=== PATIENT | male | born 1955 | race Caucasian/White ===

== ENCOUNTER 2021-01-06 11:00 | Outpatient (RCR) | payer MEDICARE, MEDICAID, SELFPAY | END 2021-01-16 18:17 | disposition home or self-care (01) | LOC: HO.PT 11:00 | PROVIDERS: PCP Family Medicine; Visit Provider Family Medicine | DX: M25.562 Pain in left knee (principal) | CPT/HCPCS: 97035; 97110; 97161 ==

== ENCOUNTER 2022-04-30 06:58 | Day surgery (SDC) | payer MEDICARE, MEDICAID, SELFPAY ==
[2022-04-25 11:51] VITALS: BMI 28.3
--- NOTE | 2022-04-27 09:15 | MHC.SHP ---
Pre-Procedural Eval Section A Date of Service: 04/27/22 The patient is an INPATIENT: No Changes since office visit: No Cold of Flu in the past 2 weeks, No New Medical Problems, No Changes in Medication and No Patient answered all questions The History & Physical has been completed within 30 days and I have reviewed it.: Yes Section B Chief Complaint: Age-related nuclear cataract, right eye Plan Diagnosis/Plan: Unchanged I have reviewed the history and physical and performed a pertinent physical examination on my patient. No changes have occurred unless specified. Time Spent With Patient Time: Total time managing care of this patient today ____ minutes.
--- NOTE | 2022-04-27 10:20 | HO.ANESPROP2 ---
Documented by User: Yun Tucker NP 04/27/22 10:21 HPI - Anesthesia Eval Consult details Narrative: 66yo M for Right Cataract Extraction IOL Insertion PCP cleared No previous cataract on record PMFSH Past Medical History Medical History (Updated 04/30/22 @ 07:54 by Angelina Patel, RN) Anxiety Depression Hypercholesteremia Insomnia Surgical History Surgical History (Updated 04/30/22 @ 07:54 by Angelina Patel RN) Hx of arthroscopic knee surgery Social History Social History Patient Tobacco Use Status: Never used Tobacco Are you DNR?: No Advance Directives: No Advance Directives Information Provided: Yes Nutrition Risks: No Nutritional Risk Meds Allergies Allergy/AdvReac Type Severity Reaction Status Date / Time No Known Allergies Allergy Verified 04/30/22 07:53 Home Medications Medication Instructions Recorded Confirmed Last Taken Type atorvastatin 20 mg tablet 1 tab DAILY 04/25/22 04/25/22 Unknown History cholecalciferol (vitamin D3) 25 1 tab PO QAM 04/25/22 04/25/22 Unknown History mcg (1,000 unit) tablet citalopram 40 mg tablet 1 tab BEDTIME 04/25/22 04/25/22 Unknown History clonazepam 0.5 mg tablet 1 tab PO DAILY PRN Anxiety 04/25/22 04/25/22 Unknown History cyanocobalamin (vitamin B-12) 1 tab DAILY 04/25/22 04/25/22 Unknown History 1,000 mcg tablet lorazepam 0.5 mg tablet 1 tab DAILY 04/25/22 04/25/22 Unknown History multivitamin with folic acid 400 1 tab PO DAILY 04/25/22 04/25/22 Unknown History mcg tablet (Daily-Adri (with folic acid)) risperidone 0.25 mg tablet 3 tab PO BEDTIME 04/25/22 04/25/22 Unknown History zolpidem 10 mg tablet 1 tab BEDTIME 04/25/22 04/25/22 Unknown History Exam Exam Date and Time: April 27, 2022 1020 Height,Weight and Vital Signs: Height 5 ft 3 in Weight 72.575 kg Assessment and Plan Assessment Anesthesia Assessment: Chart Reviewed Documented by User: Raymundo Campbell MD 04/30/22 10:51 HPI - Anesthesia Eval Consult details Narrative: 66yo M for Right Cataract Extraction IOL Insertion optimized as per PCP PCP cleared No previous cataract on record PMFSH Past Medical History Medical History (Updated 04/30/22 @ 07:54 by Angelina Patel, RN) Anxiety Depression Hypercholesteremia Insomnia Functional capacity: independent ambulation Family History Family history of problems with anesthesia: No Surgical History Surgical History (Updated 04/30/22 @ 07:54 by Angelina Patel RN) Hx of arthroscopic knee surgery History of Problems with Anesthesia: No Social History Social History Patient Tobacco Use Status: Never used Tobacco Are you DNR?: No Advance Directives: No Advance Directives Information Provided: Yes Nutrition Risks: No Nutritional Risk Meds Allergies Allergy/AdvReac Type Severity Reaction Status Date / Time No Known Allergies Allergy Verified 04/30/22 07:53 Home Medications Medication Instructions Recorded Confirmed Last Taken Type atorvastatin 20 mg tablet 1 tab DAILY 04/25/22 04/25/22 Unknown History cholecalciferol (vitamin D3) 25 1 tab PO QAM 04/25/22 04/25/22 Unknown History mcg (1,000 unit) tablet citalopram 40 mg tablet 1 tab BEDTIME 04/25/22 04/25/22 Unknown History clonazepam 0.5 mg tablet 1 tab PO DAILY PRN Anxiety 04/25/22 04/25/22 Unknown History cyanocobalamin (vitamin B-12) 1 tab DAILY 04/25/22 04/25/22 Unknown History 1,000 mcg tablet lorazepam 0.5 mg tablet 1 tab DAILY 04/25/22 04/25/22 Unknown History multivitamin with folic acid 400 1 tab PO DAILY 04/25/22 04/25/22 Unknown History mcg tablet (Daily-Adri (with folic acid)) risperidone 0.25 mg tablet 3 tab PO BEDTIME 04/25/22 04/25/22 Unknown History zolpidem 10 mg tablet 1 tab BEDTIME 04/25/22 04/25/22 Unknown History Exam Airway Mallampati Class: IV TM Dist: >3cm Denture: Upper and Lower Loose/Missing/Broken Teeth: Yes Heart: S1,S2 Lungs: b/l breath sounds Assessment and Plan Assessment Anesthesia Assessment: Anesthesia Plan Discussed Final Anesthetic Review Family History of Problems with Anesthesia: No History of Problems with Anesthesia: No NPO: Yes ASA Class: III Final Preanesthetic Review: Meds/Allgs Chart Reviewed, Consent Obtained/Reviewed and Anes Risks/Benef Reviewed Patient Risk: Intermediate Procedure Risk: Intermediate Anesthetic Plan Anesthetic Plan: MAC: Disposition: Standard PACU
[2022-04-30] MEDS: Tropicamide 1 % Ophth Sol 3 ML BTL 1 DROP EYE-RIGHT ×3 (08:04→08:23)
[2022-04-30] MEDS: Tetracaine HCl/PF 0.5% Oph Sol 4 ML DROPS 1 DROP EYE-RIGHT (08:04)
[2022-04-30] MEDS: Phenylephrine HCL 2.5% Oph SoL 2 ML BOTTLE 1 DROP EYE-RIGHT ×3 (08:04→08:21)
[2022-04-30] MEDS: Ketorolac Tromethamine 0.5% Op 5 ML DROPS 1 DROP EYE-RIGHT ×3 (08:05→08:21)
[2022-04-30] MEDS: Cyclopentolate 1 % Ophth Sol 2 ML DRPBTL 1 DROP EYE-RIGHT ×3 (08:05→08:22)
[2022-04-30] MEDS: Lactated Ringers 500 ML 50 ML IV (08:12)
[2022-04-30 08:24] VITALS: BP 128/97; PULSE 80; RESP 18; TEMP 36.6; O2SAT 97
--- NOTE | 2022-04-30 09:39 | HO.PNOPHT ---
Ophthalmology Procedure Procedure Date of Service: 04/30/22 Ophthalmology Viscoelastic: Healon Duet Dual Pack Pro Ophthalmology Lenses: SENSAR AR40 (8) Procedure Notes: PREOPERATIVE DIAGNOSIS: Decreased visual acuity right eye secondary to cataract POSTOPERATIVE DIAGNOSIS: Same PROCEDURE: Right cataract extraction with intraocular lens insertion SURGEON: Colt Reardon M.D. ANESTHESIA: Topical/MAC ESTIMATED BLOOD LOSS: None COMPLICATIONS: None After obtaining informed consent, the patient was brought to the operating room suite and placed in the supine position. After adequate sedation per anesthesia, topical drops of Tetracaine were given to the right eye. The eye was then prepped and draped in the usual sterile fashion. The operating room microscope was then positioned over the operative eye and a lid speculum placed. A paracentesis was created. Viscoelastic was then instilled into the anterior chamber. A three plane incision was then created temporally, utilizing a 2.85 mm keratome. Capsulotomy forceps were then utilized to create a circular tear capsulotomy. Hydrodissection and hydrodelineation were carried out until adequate mobilization of the nucleus occurred. Phacoemulsification was then utilized to remove the dense central nucleus followed by removal of the cortical material utilizing the automated aspiration irrigation unit. Viscoelastic was instilled into the posterior capsular bag followed by placement of a posterior chamber intraocular lens without difficulty. The residual Viscoelastic was then removed utilizing the automated IA machine. The wound was checked and found to be watertight. The patient tolerated the procedure well and the lid speculum was removed. Intracameral injection of Vigamox 0.1 mL followed by a subtenon injection of Kenalog-40 0.2 mL were administered. The patient will be seen in the a.m.
[2022-04-30 10:16] VITALS: BP 116/77; PULSE 65; RESP 17; TEMP 36.4; O2SAT 96
== END 2022-04-30 10:19 | disposition home or self-care (01) ==
PROVIDERS: PCP Internal Medicine; Visit Provider Ophthalmology
PROC: (CPT 66985; principal; 2022-04-30 09:50)
DX: H25.11 Age-related nuclear cataract, right eye (principal); H52.4 Presbyopia; H52.13 Myopia, bilateral; H35.09 Other intraretinal microvascular abnormalities; H18.413 Arcus senilis, bilateral; E78.00 Pure hypercholesterolemia, unspecified; F41.1 Generalized anxiety disorder; F32.A Depression, unspecified; Z79.899 Other long term (current) drug therapy
CPT/HCPCS: 66984; J2250; J3010; J3301; V2632

== ENCOUNTER 2022-05-14 06:58 | Day surgery (SDC) | payer MEDICARE, MEDICAID, SELFPAY ==
[2022-05-08 15:42] VITALS: BMI 28.3
--- NOTE | 2022-05-10 14:47 | MHC.SHP ---
Pre-Procedural Eval Section A Date of Service: 05/10/22 The patient is an INPATIENT: No Changes since office visit: No Cold of Flu in the past 2 weeks, No New Medical Problems, No Changes in Medication and No Patient answered all questions The History & Physical has been completed within 30 days and I have reviewed it.: Yes Section B Chief Complaint: Age-related nuclear cataract, left eye Allergies: Allergies Allergy/AdvReac Type Severity Reaction Status Date / Time No Known Allergies Allergy Verified 04/30/22 07:53 Plan Diagnosis/Plan: Unchanged I have reviewed the history and physical and performed a pertinent physical examination on my patient. No changes have occurred unless specified. Time Spent With Patient Time: Total time managing care of this patient today ____ minutes.
[2022-05-14 08:30] VITALS: BMI 29.2
--- NOTE | 2022-05-14 08:34 | HO.ANESPROP2 ---
[facility] [place] Past Medical History Medical History (Updated 05/08/22 @ 15:35 by Afsaneh Gomez RN) Anxiety Cataract Depression Hypercholesteremia Insomnia Family History Family history of problems with anesthesia: No Surgical History Surgical History (Updated 05/08/22 @ 15:37 by Afsaneh Gomez RN) H/O right cataract extraction Hx of arthroscopic knee surgery History of Problems with Anesthesia: No Social History Social History Patient Tobacco Use Status: Never used Tobacco Use of substances other than those prescribed or required for medical reasons: No Are you DNR?: No Advance Directives: No Advance Directives Information Provided: Yes Recently lost weight without trying: No Nutrition Risks: No Nutritional Risk Meds Allergies Allergy/AdvReac Type Severity Reaction Status Date / Time No Known Allergies Allergy Verified 04/30/22 07:53 Active Medications: Current Medications Povidone Iodine (Povidone Iodine 5 % Ophth Soln 30 Ml Bottle) 1 appl EYE-LEFT PREOP PRN PRN Reason: Pre-Op Surgical Implant Prophy Home Medications Medication Instructions Recorded Confirmed Last Taken Type atorvastatin 20 mg tablet 1 tab DAILY 04/25/22 04/25/22 Unknown History cholecalciferol (vitamin D3) 25 1 tab PO QAM 04/25/22 04/25/22 Unknown History mcg (1,000 unit) tablet citalopram 40 mg tablet 1 tab BEDTIME 04/25/22 04/25/22 Unknown History clonazepam 0.5 mg tablet 1 tab PO DAILY PRN Anxiety 04/25/22 05/14/22 05/14/22 05:00 History cyanocobalamin (vitamin B-12) 1 tab DAILY 04/25/22 04/25/22 Unknown History 1,000 mcg tablet lorazepam 0.5 mg tablet 1 tab DAILY 04/25/22 04/25/22 Unknown History multivitamin with folic acid 400 1 tab PO DAILY 04/25/22 04/25/22 Unknown History mcg tablet (Daily-Adri (with folic acid)) risperidone 0.25 mg tablet 3 tab PO BEDTIME 04/25/22 04/25/22 Unknown History zolpidem 10 mg tablet 1 tab BEDTIME 04/25/22 04/25/22 Unknown History Exam Exam Date and Time: May 14, 2022 0834 Height,Weight and Vital Signs: Height 5 ft 2 in Weight 72.575 kg Airway Mallampati Class: II TM Dist: >3cm Neck ROM: Full Heart: rrr Lungs: cta Assessment and Plan Assessment Anesthesia Assessment: Anesthesia Plan Discussed and Chart Reviewed Final Anesthetic Review Family History of Problems with Anesthesia: No History of Problems with Anesthesia: No NPO: Yes ASA Class: II Final Preanesthetic Review: No Changes in Pt Med Stat, Meds/Allgs Chart Reviewed and Consent Obtained/Reviewed Patient Risk: Intermediate Procedure Risk: Intermediate Anesthetic Plan Anesthetic Plan: MAC: Disposition: Standard PACU
[2022-05-14 08:38] VITALS: BP 134/78; PULSE 82; RESP 16; TEMP 36.7; O2SAT 93
[2022-05-14] MEDS: Tetracaine HCl/PF 0.5% Oph Sol 4 ML DROPS 1 DROP EYE-LEFT (08:39)
[2022-05-14] MEDS: Cyclopentolate 1 % Ophth Sol 2 ML DRPBTL 1 DROP EYE-LEFT ×3 (08:39→08:49)
[2022-05-14] MEDS: Lactated Ringers 500 ML 50 ML IV (08:40)
[2022-05-14] MEDS: Tropicamide 1 % Ophth Sol 3 ML BTL 1 DROP EYE-LEFT ×3 (08:41→08:51)
[2022-05-14] MEDS: Ketorolac Tromethamine 0.5% Op 5 ML DROPS 1 DROP EYE-LEFT ×3 (08:43→08:52)
[2022-05-14] MEDS: Phenylephrine HCL 2.5% Oph SoL 2 ML BOTTLE 1 DROP EYE-LEFT ×3 (08:46→08:53)
--- NOTE | 2022-05-14 09:27 | HO.PNOPHT ---
Ophthalmology Procedure Procedure Date of Service: 05/14/22 Ophthalmology Viscoelastic: Healon Duet Dual Pack Pro Ophthalmology Lenses: SENSAR AR40 (7) Procedure Notes: PREOPERATIVE DIAGNOSIS: Decreased visual acuity left eye secondary to cataract POSTOPERATIVE DIAGNOSIS: Same PROCEDURE: Left cataract extraction with intraocular lens insertion SURGEON: Colt Reardon M.D. ANESTHESIA: Topical/MAC ESTIMATED BLOOD LOSS: None COMPLICATIONS: None After obtaining informed consent, the patient was brought to the operation room suite and placed in the supine position. After adequate sedation per anesthesia, topical drops of Tetracaine were given to the left eye. The eye was then prepped and draped in the usual sterile fashion. The operating room microscope was then positioned over the operative eye and a lid speculum placed. A paracentesis was created. Viscoelastic was then instilled into the anterior chamber. A three plane incision was then created temporally, utilizing a 2.85 mm keratome. Capsulotomy forceps were then utilized to create a circular tear capsulotomy. Hydrodissection and hydrodelineation were carried out until adequate mobilization of the nucleus occurred. Phacoemulsification was then utilized to remove the dense central nucleus followed by removal of the cortical material utilizing the automated aspiration irrigation unit. Viscoat elastic was instilled into the posterior capsular bag followed by placement of a posterior chamber intraocular lens without difficulty. The residual Viscoat elastic was then removed utilizing the automated IA machine. The wound was check and found to be watertight. The patient tolerated the procedure well and the lid speculum was removed. Intracameral injection of Vigamox 0.1 mL followed by a subtenon injection of Kenalog-40 0.2 mL were administered. The patient will be seen in the a.m.
[2022-05-14 09:49] VITALS: BP 104/66; PULSE 69; RESP 12; TEMP 36.5; O2SAT 98
== END 2022-05-14 10:09 | disposition home or self-care (01) ==
PROVIDERS: PCP Internal Medicine; Visit Provider Ophthalmology
PROC: (CPT 66985; principal; 2022-05-14 09:40)
DX: H25.12 Age-related nuclear cataract, left eye (principal); H52.4 Presbyopia; H18.413 Arcus senilis, bilateral; H11.153 Pinguecula, bilateral; H52.13 Myopia, bilateral; H35.09 Other intraretinal microvascular abnormalities; E78.00 Pure hypercholesterolemia, unspecified; F41.1 Generalized anxiety disorder; F32.A Depression, unspecified; Z79.899 Other long term (current) drug therapy
CPT/HCPCS: 66984; J2250; J3010; J3301; V2632

== ENCOUNTER 2023-01-21 08:36 | Outpatient (REF) | payer MEDICARE, MEDICAID, SELFPAY ==
[2023-01-21 15:09] LABS: Alanine Aminotransferase 29 U/L (0-40); Albumin Level 4.4 g/dL (3.5-5.0); Alkaline Phosphatase 89 U/L (39-117); Anion Gap 13 (12-20); Aspartate Amino Transferase 29 U/L (5-37); Bilirubin Total 0.6 mg/dL (0.0-1.0); Blood Urea Nitrogen 15 mg/dL (9-16); Calcium 9.6 mg/dL (8.4-10.2); Carbon Dioxide 27 mmol/L (22-29); Chloride 106 mmol/L (96-108); Cholesterol 135 mg/dL (<200); Estimated Glomerular Filt Rate > 60; Glucose Random 91 mg/dL (60-115); HDL Cholesterol 58 mg/dL (>40); LDL Cholesterol Calculated 68 mg/dL (<100); Potassium 4.3 mmol/L (3.3-5.1); Sodium 142 mmol/L (135-145); Total Protein 7.3 g/dL (6.5-8.0); Triglycerides 49 mg/dL (<150)
== END 2023-01-21 08:37 | disposition home or self-care (01) ==
LOC: HO.CHCLDS 08:36
PROVIDERS: Visit Provider Internal Medicine
DX: E78.2 Mixed hyperlipidemia (principal)
CPT/HCPCS: 36415; 80053; 80061

== ENCOUNTER → 2023-05-02 09:24 | Outpatient (BNVA) | payer MEDICARE, MEDICAID, SELFPAY | PROVIDERS: PCP Internal Medicine; Visit Provider Physician Assistant ==

== ENCOUNTER 2023-08-20 06:10 | Day surgery (SDC) | payer MEDICARE, MEDICAID, SELFPAY ==
[2023-08-20 08:28] VITALS: BP 135/67; PULSE 67; RESP 19; TEMP 36.4; O2SAT 97; BMI 25.8
--- NOTE | 2023-08-20 08:54 | P.HPSUR_ITS ---
Pre-Procedural Eval Section A - 24 Hr Update-Section A only Date of Service: 08/20/23 Section B - Complete if H&P > 30 days Chief Complaint: Encounter for screening for malignant neoplasm of Relevant Family History (Specify if Yes): No Relevant Social History: None Present Medications: see Short Stay Collaborative assessment Medical History: Significant History (Anxiety Cataract Depression Hypercholest eremia Insomnia) History of Previous Operations: Relevant previous surgery/procedure and date(s) (H/O right cataract extraction Hx of arthroscopic knee surgery) Allergies: Allergies Allergy/AdvReac Type Severity Reaction Status Date / Time No Known Allergies Allergy Verified 05/02/23 09:42 Review of Systems Sugical H&P ROS: Negative: Constitution, Cardiovascular, Respiratory, Neurological, Psychiatric, Hem-Onc, Allergic/Immunologic, Gastrointestinal, Genitourinary, Musculoskeletal, Integumentary, Endocrine and Eyes/Ears/Nose/Throat Exam Surgical H&P Exam: Normal: HEENT, Normal: Heart, Normal: Lungs, Normal: Extremities, Normal: Abdomen, Normal: Skin and Normal: Neurological Plan Diagnosis/Plan: Unchanged I have reviewed the history and physical and performed a pertinent physical examination on my patient. No changes have occurred unless specified. Time Spent With Patient Time: Total time managing care of this patient today ____ minutes.
--- NOTE | 2023-08-20 09:15 | HO.ANESPROP2 ---
HPI - Anesthesia Eval Consult details Narrative: 67 yo male patient for Colonoscopy PMFSH Active Problems Active Problems: All Active Problems Encounter for screening colonoscopy (Acute) Past Medical History Medical History Cataract Hypercholesteremia Depression Anxiety Insomnia Family History Family History Family/Other No family history of colorectal cancer Family history of problems with anesthesia: No Surgical History Surgical History H/O right cataract extraction Hx of arthroscopic knee surgery History of Problems with Anesthesia: No Social History Social History Household Members Other:: Alcohol intake: never Patient Tobacco Use Status: Never used Tobacco Are you DNR?: No Advance Directives: No Advance Directives Information Provided: Yes Nutrition Risks: No Nutritional Risk Current occupational status: unemployed Meds Allergies Allergy/AdvReac Type Severity Reaction Status Date / Time No Known Allergies Allergy Verified 05/02/23 09:42 Active Medications: Current Medications Lactated Ringer's (Lr) 1,000 mls @ 50 mls/hr IVCONT .Q20H YISSEL Home Medications ?Medication ?Instructions ?Recorded ?Confirmed ?Last Taken ?Type atorvastatin 20 mg tablet 1 tab DAILY 04/25/22 04/25/22 Unknown History cholecalciferol (vitamin D3) 25 1 tab PO QAM 04/25/22 04/25/22 Unknown History mcg (1,000 unit) tablet citalopram 40 mg tablet 1 tab BEDTIME 04/25/22 04/25/22 Unknown History multivitamin with folic acid 400 1 tab PO DAILY 04/25/22 04/25/22 Unknown History mcg tablet (Daily-Adri (with folic acid)) risperidone 0.25 mg tablet 3 tab PO BEDTIME 04/25/22 04/25/22 Unknown History zolpidem 10 mg tablet 1 tab BEDTIME 04/25/22 04/25/22 Unknown History Exam Height,Weight and Vital Signs: Height 5 ft 2 in Weight 64.047 kg Last Vital Signs Temp 97.5 F 08/20/23 08:28 Pulse 67 08/20/23 08:28 Resp 19 08/20/23 08:28 BP 135/67 08/20/23 08:28 Pulse Ox 97 08/20/23 08:28 O2 Del Method Room Air 08/20/23 08:28 Airway Mallampati Class: II TM Dist: >3cm Neck ROM: Full Denture: Upper and Lower Loose/Missing/Broken Teeth: Yes (Full dentures) Heart: RRR Lungs: CTAB Assessment and Plan Assessment Anesthesia Assessment: Anesthesia Plan Discussed and Chart Reviewed Final Anesthetic Review Family History of Problems with Anesthesia: No History of Problems with Anesthesia: No NPO: Yes ASA Class: II Final Preanesthetic Review: No Changes in Pt Med Stat, Meds/Allgs Chart Reviewed, Consent Obtained/Reviewed and Anes Risks/Benef Reviewed Patient Risk: Low Procedure Risk: Low Assessment/Block/Sedation in SS: Assess/Block/Sedation-SS Anesthetic Plan Anesthetic Plan: GA, MAC: and TIVA Disposition: Standard PACU
[2023-08-20] MEDS: Lactated Ringers 1,000 ML 50 ML IVCONT (09:24)
--- NOTE | 2023-08-20 10:02 | P.OPN-COLO_ITS ---
Colonoscopy Operative Note Operative Note Date of Service: 08/20/23 Narrative: Operative Information Procedure Description: Colonoscopy Indication: screening Anesthesia: MAC COLONOSCOPY Instrument: Olympus variable stiffness pediatric scope 190L Colonoscopy Monitoring: Vital signs and clinical assessment, continuous EKG monitoring, Pulse oximetry, Carbon Dioxide monitoring and blood pressure monitoring were done throughout the procedure. Colon withdrawal time was 8 minutes. Procedure: The patient was placed in the left lateral decubitis position and pre-procedure medications were administered. After a digital rectal examination of the ano-rectum, the video colonoscope was inserted into the rectum and advanced through the colon to the cecum/TI. The colonoscope was slowly withdrawn in a retrograde panoramic fashion and the colon mucosa was carefully examined including a retroflexed view of the rectum. Findings and interventions are described below. Procedure Difficulty: easy Findings: Terminal Ileum-normal Cecum:normal Right sided retroflexion- normal Ascending Colon: moderate diverticulosis Transverse Colon -normal Descending Colon:normal Sigmoid Colon: 6-8 mm sessile polyp removed with cold snare Rectum: Retroflexion with small internal hemorrhoids seen, grade I Anorectum - normal Intervention: cold snare Colon preparation: [place] Bowel Preparation Scale Right colon; 2 Transverse colon: 3 Left colon; 3 (0 = Unprepared colon segment with mucosa not seen due to solid stool that cannot be cleared. 1 = Portion of mucosa of the colon segment seen, but other areas of the colon segment not well seen due to staining, residual stool and/or opaque liquid. 2 = Minor amount of residual staining, small fragments of stool and/or opaque liquid, but mucosa of colon segment seen well. 3 = Entire mucosa of colon segment seen well with no residual staining, small fragments of stool or opaque liquid) Impression and Post Procedure Diagnosis: diverticulosis colon polyp internal hemorrhoids Plan: High fiber diet leaflet Avoid straining at stool, epsom salts and sitz bath, anusol supps or cream Repeat Colonoscopy in 5-7 years if adenomatous polyp, 10 yrs if hyperplastic or earlier if clinically indicated Above findings were reviewed with the patient and relevant handouts were provided if indicated.
[2023-08-20 10:08] VITALS: BP 105/66; PULSE 69; RESP 17; TEMP 36.7; O2SAT 99
[2023-08-20 10:23] VITALS: BP 114/68; PULSE 64; RESP 17; TEMP 36.7; O2SAT 98
== END 2023-08-20 10:41 | disposition home or self-care (01) ==
PROVIDERS: PCP Internal Medicine; Visit Provider Internal Medicine Gastroenterology
PROC: 0DJD8ZZ Inspection of Lower Intestinal Tract, Via Natural or Artificial Opening Endoscopic (ICD-10-PCS; CPT 45378; principal; 2023-08-20 10:00)
DX: Z12.11 Encounter for screening for malignant neoplasm of colon (principal); D12.5 Benign neoplasm of sigmoid colon; K55.20 Angiodysplasia of colon without hemorrhage; K57.30 Diverticulosis of large intestine without perforation or abscess without bleeding; K64.0 First degree hemorrhoids; E78.00 Pure hypercholesterolemia, unspecified; Z79.899 Other long term (current) drug therapy; G47.00 Insomnia, unspecified; F32.A Depression, unspecified; F41.9 Anxiety disorder, unspecified; Z56.0 Unemployment, unspecified
CPT/HCPCS: 45385; 88305; J2704

== ENCOUNTER → 2023-08-20 06:10 | Outpatient (BNV) | payer MEDICARE, MEDICAID, SELFPAY | PROVIDERS: PCP Internal Medicine; Visit Provider Internal Medicine Gastroenterology | DX: Z12.11 Encounter for screening for malignant neoplasm of colon (principal); K57.90 Diverticulosis of intestine, part unspecified, without perforation or abscess without bleeding; D12.5 Benign neoplasm of sigmoid colon; K64.0 First degree hemorrhoids | CPT/HCPCS: 45385 ==

== ENCOUNTER 2023-10-24 08:53 | Outpatient (REF) | payer MEDICARE, MEDICAID, SELFPAY ==
[2023-10-24 14:56] LABS: Alanine Aminotransferase 29 U/L (0-40); Albumin Level 4.3 g/dL (3.5-5.0); Alkaline Phosphatase 93 U/L (39-117); Anion Gap 12 (12-20); Aspartate Amino Transferase 27 U/L (5-37); Bilirubin Total 0.3 mg/dL (0.0-1.0); Blood Urea Nitrogen 18 mg/dL (9-16); Calcium 9.3 mg/dL (8.4-10.2); Carbon Dioxide 25 mmol/L (22-29); Chloride 106 mmol/L (96-108); Cholesterol 132 mg/dL (<200); Estimated Glomerular Filt Rate > 60; Glucose Random 87 mg/dL (60-115); HDL Cholesterol 61 mg/dL (>40); LDL Cholesterol Calculated 64 mg/dL (<100); Potassium 4.4 mmol/L (3.3-5.1); Sodium 139 mmol/L (135-145); Total Protein 7.2 g/dL (6.5-8.0); Triglycerides 38 mg/dL (<150)
== END 2023-10-24 08:54 | disposition home or self-care (01) ==
LOC: HO.CHCLDS 08:53
PROVIDERS: Visit Provider Internal Medicine
DX: E78.2 Mixed hyperlipidemia (principal)
CPT/HCPCS: 36415; 80053; 80061

== ENCOUNTER 2024-08-11 07:59 | Outpatient (REF) | payer MEDICARE, MEDICAID, SELFPAY ==
--- OUTSIDE RECORDS SUMMARY | 2024-08-11 08:03 | XMS_ITS | Encounter Summary ---
Author Organization [employer] Address [address] [place] [address] Care Team Providers Care Cooker Operator Name Role Phone Shiv Velasquez MD Primary Care Prov ider Encounter Details Date Type Department Care Team ([facility] Contact Info) Description 01/27/2022 Orders Only [facility] [address] [place] [address] Shiv Velasquez MD [address] [place], [place] [id number] Social History Tobacco Use Types Packs/Day Years Used Date Smoking Tobacco: Never Assessed Sex and Gender Information Value Date Recorded Sex Assigned at Male 12/18/2021 10:26 AM EDT Legal Sex Male 10:26 AM EDT Gender Identity Male 12/18/2021 10:26 AM EDT Sexual Orientation Straight 12/18/2021 10 :26 AM EDT documented as of this encounter Plan of Treatment Not on file documented as of this encounter Visit Diagnoses Not on filedocumented in this encounter Care Teams Cooker Operator Relationship Specialty Start Date End Date Shiv Velasquez MD [address] [place] [address] PCP - General Internal Medicine 07/14/19 documented as of this encounter
[2024-08-11 14:02] LABS: MANUAL DIFF FLAG NO
[2024-08-11 14:10] LABS: Basophils Percent Auto 0.3 % (0-2); Eosinophils Absolute Auto 0.1 X10*3/uL (0.0-0.4); Eosinophils Percent Auto 1.7 % (0-4); Hematocrit 39.4 % (42.0-52.0); Hemoglobin 13.1 g/dl (14.0-18.0); Imm Gran Abs Auto 0.02 X10*3/uL (0.00-0.03); Imm Gran Pct Auto 0.3 % (0.0-0.4); Lymphocytes Absolute Auto 1.1 X10*3/uL (1.2-4.9); Lymphocytes Percent Auto 18.1 % (20-40); Mean Corpuscular HGB Conc 33.2 g/dl (31.0-36.0); Mean Corpuscular Hemoglobin 28.6 pg (27.0-33.0); Mean Platelet Volume 9.3 fL (9.4-12.4); Monocytes Absolute Auto 0.7 X10*3/uL (0.1-1.2); Monocytes Percent Auto 11.3 % (2-11); Neutrophils Absolute Auto 4.3 x10*3/uL (2.0-8.3); Neutrophils Percent Auto 68.3 % (45-73); Platelet Count 261 X10*3/uL (160-400); Red Blood Count 4.58 X10*6/uL (4.60-5.80); Red Cell Distribution Width 14.7 % (11.0-16.0); White Blood Count 6.3 X10*3/uL (4.8-10.8)
[2024-08-11 14:36] LABS: Alanine Aminotransferase 44 U/L (0-40); Albumin Level 4.4 g/dL (3.5-5.0); Alkaline Phosphatase 84 U/L (39-117); Anion Gap 11 (12-20); Aspartate Amino Transferase 57 U/L (5-37); Bilirubin Total 0.3 mg/dL (0.0-1.0); Blood Urea Nitrogen 20 mg/dL (9-16); Calcium 9.1 mg/dL (8.4-10.2); Carbon Dioxide 26 mmol/L (22-29); Chloride 108 mmol/L (96-108); Cholesterol 132 mg/dL (<200); Estimated Glomerular Filt Rate > 60; Glucose Random 100 mg/dL (60-115); HDL Cholesterol 57 mg/dL (>40); LDL Cholesterol Calculated 67 mg/dL (<100); Potassium 4.5 mmol/L (3.3-5.1); Sodium 140 mmol/L (135-145); Total Protein 6.9 g/dL (6.5-8.0); Triglycerides 41 mg/dL (<150)
[2024-08-11 14:56] LABS: Vitamin D 25-OH Total 39.7 ng/mL (>30)
[2024-08-11 15:05] LABS: Vitamin B12 537 pg/mL (200-900)
== END 2024-08-11 08:00 | disposition home or self-care (01) ==
LOC: HO.CHCLDS 07:59
PROVIDERS: Visit Provider Internal Medicine
DX: E78.2 Mixed hyperlipidemia (principal); E53.8 Deficiency of other specified B group vitamins; E55.9 Vitamin D deficiency, unspecified
CPT/HCPCS: 36415; 80053; 80061; 82306; 82607; 82746; 85025